=== PATIENT | male | born 2000 | race Caucasian/White ===

== ENCOUNTER 2022-05-01 21:31 | Emergency (ER) | payer SELFPAY ==
[~2022-05-01] VITALS: Ht 185.4 cm; Wt 98.3 kg
[2022-05-01 21:33] VITALS: BP 127/58
== END 2022-05-02 02:30 | disposition left against medical advice (07) ==
LOC: M ED 21:31
DX: Z53.29 Procedure and treatment not carried out because of patient's decision for other reasons (principal)